=== PATIENT | female | born 1990 | race Caucasian/White ===

== ENCOUNTER 2018-05-05 23:58 | Emergency (ER) | payer OTHER ==
[2018-05-06 00:16] VITALS: BP 127/85; PULSE 99; TEMP 99.1; BMI 22.0
[2018-05-06] MEDS ORDERED: AMOX TR/POT CLAV 875MG/125MG TABLETS (FP) PO STA (01:35)
--- NOTE | 2018-05-06 01:35 | PDOC ---
History of Present Illness <Aiyana Garcia Kamla - Last Filed: 05/06/18 01:43> - General History Source: Patient Exam Limitations: No Limitations - History of Present Illness Initial Comments: 05/06/18 01:49 The patient is a 27 year old female, with no significant past medical history, who presents to the emergency department with, 3 days of a constant migraine. As per patient, she has been sick for the past 8 days and for the past 3 she has been complaining of a migraine localized to her left side she describes as constant and associated to when her left nasal passage is clear. She denies recent fevers, chills, headache or dizziness. She denies recent nausea, vomit, diarrhea or constipation. She denies recent dysuria, frequency, urgency or hematuria. She denies recent chest pain or shortness of breath. Allergies: NKA Past surgical history: None reported. Social history: Nonsmoker. Denies EtOH use and recreational drug use. <Zaki Ashby - Last Filed: 05/06/18 01:51> - General Chief Complaint: Cold Symptoms Stated Complaint: FLU Time Seen by Provider: 05/06/18 01:15 Past History - Suicide/Smoking/Psychosocial Hx Smoking History: Never smoked Hx Alcohol Use: Yes (Social) Drug/Substance Use Hx: (MJ) <Aiyana Garcia Kamla - Last Filed: 05/06/18 01:43> <Zaki Ashby - Last Filed: 05/06/18 01:51> - Past Medical History Home Medications: Ambulatory Orders Amox-Tr/K Cl [Augmentin - 875Mg Tablet] 1 tab PO BID #20 tablet 05/06/18 Review of Systems - Review of Systems Able to Perform ROS?: Yes Comments:: 05/06/18 01:50 CONSTITUTIONAL: Absent: fever, no chills, no fatigue EYES: Absent: visual changes ENT: Absent: ear pain, no sore throat CARDIOVASCULAR: Absent: chest pain, no palpitations RESPIRATORY: Absent: cough, no SOB GI: Absent: abdominal pain, no nausea, no vomiting, no constipation, no diarrhea GENITOURINARY: Absent: dysuria, no frequency, no hematuria MUSKULOSKELETAL: Absent: back pain, no arthralgia, no myalgia SKIN: Absent: rash NEURO: Present: headache. All Other Systems: Reviewed and Negative <Zaki Ashby - Last Filed: 05/06/18 01:51> *Physical Exam - Vital Signs Last Vital Signs Temp Pulse Resp BP Pulse Ox 99.1 F 99 H 20 127/85 97 05/06/18 00:11 05/06/18 00:11 05/06/18 00:11 05/06/18 00:11 05/06/18 00:11 <Aiyana Garcia - Last Filed: 05/06/18 01:43> - Vital Signs Last Vital Signs Temp Pulse Resp BP Pulse Ox 99.1 F 99 H 20 127/85 97 05/06/18 00:11 05/06/18 00:11 05/06/18 00:11 05/06/18 00:11 05/06/18 00:11 - Physical Exam Comments: 05/06/18 01:49 GENERAL: Well-appearing, well-nourished. No apparent distress. +HEENT: Nasal congestion. Erythematous throat. CARDIOVASCULAR: Normal S1, S2. Regular rate and rhythm. PULMONARY: Clear to auscultation bilaterally. ABDOMEN: Soft, non-distended, non-tender. EXTREMITIES: Normal ROM in all four extremities. No gross deformities. SKIN: Warm, dry. No rash NEUROLOGICAL: No focal neurological deficits. <Zaki Ashby - Last Filed: 05/06/18 01:51> Moderate Sedation - Procedure Monitoring Vital Signs: Procedure Monitoring Vital Signs Temperature 99.1 F 05/06/18 00:11 Pulse Rate 99 H 05/06/18 00:11 Respiratory Rate 20 05/06/18 00:11 Blood Pressure 127/85 05/06/18 00:11 O2 Sat by Pulse Oximetry (%) 97 05/06/18 00:11 <Aiyana Garcia - Last Filed: 05/06/18 01:43> - Procedure Monitoring Vital Signs: Procedure Monitoring Vital Signs Temperature 99.1 F 05/06/18 00:11 Pulse Rate 99 H 05/06/18 00:11 Respiratory Rate 20 05/06/18 00:11 Blood Pressure 127/85 05/06/18 00:11 O2 Sat by Pulse Oximetry (%) 97 05/06/18 00:11 <Zaki Ashby - Last Filed: 05/06/18 01:51> *DC/Admit/Observation/Transfer <Aiyana Garcia - Last Filed: 05/06/18 01:43> - Attestations Scribe Attestion: 05/06/18 01:51 Documentation prepared by Zaki Ashby, acting as medical imaging technologist for Aiyana Garcia MD. <Zaki Ashby - Last Filed: 05/06/18 01:51> Diagnosis at time of Disposition: Nasal sinus congestion, Flu-like symptoms Sinusitis Qualifiers: Sinusitis location: frontal Chronicity: acute Recurrence: not specified as recurrent Qualified Code(s): J01.10 - Acute frontal sinusitis, unspecified - Discharge Dispostion Disposition: HOME Condition at time of disposition: Stable - Prescriptions Prescriptions: Amox-Tr/K Cl [Augmentin - 875Mg Tablet] 1 tab PO BID #20 tablet - Patient Instructions Printed Discharge Instructions: DI for Sinusitis Additional Instructions: 1. 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 on [address] in the morning 2. Rest 3. Stay hydrated 4. Take tylenol or motrin or aleve for pain ,fever and body aches 5. Return for any worsening symptoms
== END 2018-05-06 02:00 | disposition home or self-care (01) ==
LOC: JER 23:58
DX: J01.10 Acute frontal sinusitis, unspecified (principal)
CPT/HCPCS: 99281-25